=== PATIENT | female | born 1950 | race Caucasian/White ===

== ENCOUNTER → 2019-05-02 | Outpatient (CLI) | payer MEDICARE, OTHER ==
--- NOTE | 2019-05-02 11:24 | CARD ---
MR#: [id number] Date of Study: 05/02/2019 Ordering Physician: CHAI KINNEY, Referring Physician: CHAI KINNEY Tech: Zahida Petersen RDCS APPROVED REPORT EXAM: Two-dimensional and M-mode echocardiogram with Doppler and color Doppler. INDICATION Murmur 2D DIMENSIONS RVDd3.1 (2.9-3.5cm)Left Atrium(2D)4.1 (1.6-4.0cm) IVSd0.9 (0.7-1.1cm)Aortic Root(2D)2.8 (2.0-3.7cm) LVDd4.6 (3.9-5.9cm)LVOT Diameter2.0 (1.8-2.4cm) PWd0.9 (0.7-1.1cm)LVDs3.1 (2.5-4.0cm) FS (%) 32.2 %SV58.9 ml LVEF(%)60.4 (>50%) Aortic Valve AoV Peak Tevin.392.7cm/sAoV VTI90.3cm AO Peak GR.61.7mmHgLVOT Peak Tevin.104.2cm/s LVOT VTI 25.34cmAO Mean GR.35mmHg BEN (VMAX)0.04kn3YGZ (VTI)0.86cm2 AI P 1/2 Orwu857yq Mitral Valve MV E Djgzsddf16.4cm/sMV DECEL TVGV643kx MV A Ouwzhepe701.0cm/sE/A Ratio0.7 Pulmonary Valve PV Peak Wiezoxbs740.4cm/sPV Peak Grad.15mmHg Tricuspid Valve TR P. Rjyzdark707ao/sRAP [id number] TR Peak Gr.71ohHeAAXR09gpAz Pulmonary Vein S1 Irfreijy80.0cm/sD2 Zynaguqp45.6cm/s LEFT VENTRICLE The left ventricle is normal size. There is normal left ventricular wall thickness. The left ventricu lar systolic function is normal. The Ejection Fraction is 55-60%. There is normal LV segmental wall m otion. Transmitral Doppler flow pattern is Grade I-abnormal relaxation pattern. RIGHT VENTRICLE The right ventricle is normal size. The right ventricular systolic function is normal. ATRIA The left atrium is mildly dilated. The right atrium size is normal. The interatrial septum is intact with no evidence for an atrial septal defect or patent foramen ovale as noted on 2-D or Doppler imagi ng. AORTIC VALVE The aortic valve is calcified and displays decreased opening. Doppler and Color Flow revealed mild ao rtic regurgitation. Calculated aortic valve area is 0.9 cm2 with maximum pressure gradient of 62 mmHg and mean pressure gradient of 35 mmHg. Doppler and color-flow analysis revealed moderate to severe a ortic stenosis. MITRAL VALVE The mitral valve is calcified but opens well. There is no evidence of mitral valve prolapse. There is no mitral valve stenosis. Doppler and Color-flow revealed trace mitral regurgitation. TRICUSPID VALVE The tricuspid valve is normal in structure and function. Doppler and Color Flow revealed trace tricus pid regurgitation. There is mild pulmonary hypertension. The PA pressure was estimated at 33 mmHg. Th ere is no tricuspid valve stenosis. PULMONIC VALVE The pulmonic valve is not well visualized. Doppler and Color Flow revealed no pulmonic valvular regur gitation. There is no pulmonic valvular stenosis. GREAT VESSELS The aortic root is normal in size. The ascending aorta is normal in size. The IVC is normal in size a nd collapses >50% with inspiration. PERICARDIAL EFFUSION There is no evidence of significant pericardial effusion. Critical Notification Critical Value: No <Conclusion> The left ventricular systolic function is normal. The Ejection Fraction is 55-60%. There is normal LV segmental wall motion. Transmitral Doppler flow pattern is Grade I-abnormal relaxation pattern. Moderate to severe aortic stenosis. Mild aortic regurgitation. Trace mitral regurgitation. The PA pressure was estimated at 33 mmHg. There is no evidence of significant pericardial effusion. Signed by : Tru Lezama, Electronically Approved : 05/02/2019 11:23:38
== END | disposition home or self-care (01) ==
LOC: ECHO 07:26
PROVIDERS: ATTEND Physician Assistant Medical
DX: I08.0 Rheumatic disorders of both mitral and aortic valves (principal); I27.20 Pulmonary hypertension, unspecified
CPT/HCPCS: 93306